=== PATIENT | female | born 2000 | race American Indian/Alaskan Native ===

== ENCOUNTER 2022-02-01 11:28 | Outpatient (CLI) | payer MEDICAID | END 2022-02-01 16:25 | disposition home or self-care (01) | LOC: LAB 11:28 → APU 15:50 → LAB 16:25 | PROVIDERS: ATTEND Obstetrics & Gynecology | DX: O26.893 Other specified pregnancy related conditions, third trimester (principal); Z3A.29 29 weeks gestation of pregnancy | CPT/HCPCS: 86850; 86900; 86901; 96372; J2790 ==